=== PATIENT | male | born 1940 | race Caucasian/White ===

== ENCOUNTER 2022-07-07 12:02 | Outpatient (CLI) | payer MEDICARE | END 2022-07-07 12:03 | disposition home or self-care (01) | LOC: ULT 12:02 | PROVIDERS: ATTEND Nurse Practitioner Family | DX: K40.91 Unilateral inguinal hernia, without obstruction or gangrene, recurrent (principal) | CPT/HCPCS: 76999 ==

== ENCOUNTER 2023-02-15 13:18 | Outpatient (CLI) | payer MEDICARE ==
[2023-02-15 15:08] LABS: #Eosinphils 0.1 10x3/uL (0.0-0.5); #Neutrophils 6.3 10x3/uL (1.5-8.4); %Basophils 0.4 % (0.0-2.0); %Eosinophils 1.3 % (0.0-6.0); %Monocytes 10.3 % (0.0-10.0); %Neutrophils 67.6 % (40.0-75.0); Hemoglobin 14.9 g/dL (13.5-17.5); Mean Corpuscular HGB CONC 33.9 g/dL (32.0-36.0); Mean Corpuscular Volume 88.7 fl (81.2-95.1); Mean Platelet Volume 9.7 fl (7.4-10.4); Platelet Count 301 10x3/uL (150-450); RBC Distribution Width 13.1 % (11.5-14.5); Red Blood Cell (RBC) Count 4.96 10x6/uL (4.32-5.72); White Blood Cell (WBC) Count 9.4 10x3/uL (3.5-10.5)
[2023-02-15 15:28] LABS: Anion Gap 13 mmol/L (10-20); BUN (Urea Nitrogen) 13 mg/dL (8.4-25.7); Calc. Creatinine Clearance 0 mL/min (70-130); Calcium 8.5 mg/dL (7.8-10.44); Carbon Dioxide 25 mmol/L (23-31); Chloride 105 mmol/L (98-107); Estimated GFR 89; Glucose 91 mg/dL (83-110); Potassium 4.3 mmol/L (3.5-5.1); Sodium 139 mmol/L (136-145)
== END 2023-02-15 13:19 | disposition home or self-care (01) ==
LOC: LABBT 13:18
PROVIDERS: ATTEND Specialist
DX: Z01.818 Encounter for other preprocedural examination (principal); K40.90 Unilateral inguinal hernia, without obstruction or gangrene, not specified as recurrent
CPT/HCPCS: 71046; 80048; 85025; 93005; 93010

== ENCOUNTER 2023-02-17 10:32 | Day surgery (SDC) | payer MEDICARE ==
[2023-02-15 13:52] VITALS: BMI 20.9
[2023-02-17] MEDS ORDERED: Ketorolac Tromethamine 30 MG/ML VIAL ONE (10:56)
[2023-02-17] MEDS ORDERED: Acetaminophen 500 MG TAB ONE (10:56)
[2023-02-17] MEDS ORDERED: Bupivacaine 0.25% HCL 30 ML VIAL ONE (11:47)
[2023-02-17] MEDS ORDERED: EPINEPHrine 1 MG/ML AMP ONE (11:47)
[2023-02-17] MEDS ORDERED: CEFAZOLIN 2 GM VIAL ONE (12:17)
[2023-02-17] MEDS ORDERED: Sodium Chloride 0.9% 100 ML ONE (12:17)
[2023-02-17] MEDS ORDERED: fentaNYL 50 mcg/mL 1 mL Vial ONE (12:25)
[2023-02-17] MEDS ORDERED: Sevoflurane 250 ML INH ANEST BOTTLE ONE (12:49)
[2023-02-17] MEDS ORDERED: Ondansetron PF 4 MG/2 ML Vial ONE (12:56)
[2023-02-17] MEDS ORDERED: Glycopyrrolate 0.2 MG/ML 5 ML SYRINGE ONE (12:56)
[2023-02-17] MEDS ORDERED: PROPOFOL 200 MG/20 ML VIAL ONE (12:56)
[2023-02-17] MEDS ORDERED: PHENYLEPHRINE-NS 100 MCG/ML 10 ML SYRINGE ONE (12:56)
[2023-02-17] MEDS ORDERED: Lidocaine 1% PF 5 ML VIAL ONE (12:56)
[2023-02-17] MEDS ORDERED: Rocuronium Bromide 10 MG/ML (10ML VIAL) ONE (12:56)
== END 2023-02-17 16:38 | disposition home or self-care (01) ==
LOC: SDC 10:32
PROVIDERS: ATTEND Specialist
PROC: 0YU64JZ Supplement Left Inguinal Region with Synthetic Substitute, Percutaneous Endoscopic Approach (ICD-10-PCS; principal; 2023-02-17)
DX: K40.90 Unilateral inguinal hernia, without obstruction or gangrene, not specified as recurrent (principal)
CPT/HCPCS: 49650; A4314; C1781; C9250; J0171; J1885; J2405; J2704; J3010; J3490; S0020